=== PATIENT | female | born 1940 | race Caucasian/White ===

== ENCOUNTER 2018-01-17 22:02 | Inpatient (IN) | payer MEDICARE, BC ==
[~2018-01-17] VITALS: Ht 157.5 cm; Wt 61.2 kg
[~2018-01-17 22:02] MED LIST: ALBUTEROL2.5 MG/31 INH; AMLODIPINE BESYL5 MG PO; DUONEB 2.5-0.5 M3 ML INH; LEVAQUIN 500 M500 M2 PO; LEVOTHYROXINE 0.1 MG PO; PREDNISONE 10 M10 MG PO
[2018-01-17 22:08] VITALS: BP 192/91
[2018-01-17] MEDS ORDERED: SPIRIVA RESPIMAT4 G1 (22:15)
[2018-01-17] MEDS ORDERED: DULERA 100 MCG/13 GM INH (22:16)
[2018-01-17 23:05] LABS: HEMATOCRIT 42.8 % (37.0-47.0); MCH 27.9 pg (26.0-34.0); MCHC 32.7 g/dL (28.0-37.0); MCV 85.5 fL (80.0-100.0); MPV 7.2 fl. (7.2-11.1); NUCLEATED RBCS 0 /100WBC; PLATELET COUNT* 373 thou/uL (150-400); RBC 5.01 mil/uL (4.20-5.00); RDW-CV 13.9 % (10.5-14.5); WBC 6.8 thou/uL (4.0-11.0)
[2018-01-17 23:13] LABS: ANION GAP 5 mmol/L (7-16); BUN 7 mg/dL (7-18); CALCIUM 8.6 mg/dL (8.5-10.1); CHLORIDE 100 mmol/L (98-107); CO2 35 mmol/L (21-32); CREATININE 0.7 mg/dL (0.6-1.3); GLUCOSE 131 mg/dL (70-99); POTASSIUM 3.8 mmol/L (3.5-5.1); SODIUM 140 mmol/L (136-145)
[2018-01-17 23:24] LABS: ALKALINE PHOSPHATASE 83 U/L (46-116); NT-PRO BRAIN NAT PEPTIDE 52 pg/mL (<300); SGOT 17 U/L (15-37); SGPT 19 U/L (30-65); TOTAL BILIRUBIN 0.2 mg/dL (<0.1-1.0); TOTAL PROTEIN 7.9 g/dL (6.4-8.2); TROPONIN-I LEVEL <0.06 ng/mL (<0.06)
[2018-01-17 23:42] LABS: INFLUENZA A ANTIGEN None Detected (None Detect); INFLUENZA B ANTIGEN None Detected (None Detect)
[2018-01-17 23:59] LABS: ABSOLUTE BASOPHILS 0.1 thou/uL (0.0-0.2); ABSOLUTE EOSINOPHILS 0.1 thou/uL (0.0-0.7); ABSOLUTE LYMPHOCYTES 0.3 thou/uL (0.8-5.3); ABSOLUTE MONOCYTES 0.4 thou/uL (0.0-1.2); ABSOLUTE NEUTROPHILS 5.8 thou/uL (1.6-8.1); ANISOCYTOSIS Occasional; PLATELET ESTIMATE ADEQUATE
[2018-01-18 02:10] VITALS: BP 139/70
[2018-01-18 02:26] VITALS: BP 140/60
[2018-01-18 04:00] VITALS: BP 129/57
[2018-01-18 06:02] LABS: HEMATOCRIT 39.2 % (37.0-47.0); HEMOGLOBIN 12.6 gm/dL (12.0-15.0); MCH 27.9 pg (26.0-34.0); MCHC 32.2 g/dL (28.0-37.0); MCV 86.7 fL (80.0-100.0); MPV 7.3 fl. (7.2-11.1); RBC 4.52 mil/uL (4.20-5.00); RDW-CV 13.7 % (10.5-14.5); WBC 7.2 thou/uL (4.0-11.0)
[2018-01-18 06:10] LABS: CALCIUM 8.2 mg/dL (8.5-10.1); CREATININE 0.6 mg/dL (0.6-1.3); POTASSIUM 3.9 mmol/L (3.5-5.1)
[2018-01-18 09:13] LABS: BE 3.5 mmol/L (-2 to +3); HCO3 31.2 mmol/L (22.0-26.0); pH 7.322 (7.340-7.450)
[2018-01-18 09:14] LABS: PCO2 61.7 mmHg (35.0-45.0); PO2 191.1 mmHg (75.0-100.0)
--- NOTE | 2018-01-18 12:08 | EKG ---
[place] [address] ELECTROCARDIOGRAM REPORT Name: REID BISHOP Room: [address] ADM IN M.R.#: [id number] Admission: 01/18/18 Attend Phys: Jonatan Rinaldi Discharge: Date of : 44 Report #: [id number] THIS REPORT FOR: //name// [facility] ED Test Date: 2018-01-17 Test Time: 23:18:26 Pat Name: REID BISHOP Department: Room: [facility] Gender: F Breast Worker: MAU : 1940 Requested By: Lizette Lozano Order Number: [id number] MD: Darin Fung Measurements Intervals [place] Rate: 105 P: 64 W[place]: 183 QRS: 68 QRSD: 102 T: 90 QT: 367 QTc: 486 Interpretive Statements Sinus tachycardia Low voltage, extremity and precordial leads Artifact in lead(s) I,II,III,aVR,aVL,V1,V2,V3,V4,V5,V6 and baseline wander in lead(s) II,III,aVR,aVL,aVF,V1,V2,V3,V4,V5,V6 Compared to ECG 07/08/2016 02:10:36 rate slowed Electronically Signed On 01-18-2018 12:08:37 CDT by Darin Fung [email or web address] <ELECTRONICALLY SIGNED> By: Darin Fung MD, [facility] 01/18/18 1208 17 Darin Fung MD, [facility] /EPI
[2018-01-18 14:59] VITALS: BP 145/64
[2018-01-18 19:12] LABS: GLYCOHEMOGLOBIN (HGB A1C) 5.8 % (4.8-5.6)
[2018-01-18 20:00] VITALS: BP 141/73
[2018-01-18 23:39] VITALS: BP 149/67
[2018-01-19] VITALS (7 sets, daily range): BP systolic 127–147; BP diastolic 56–77
[2018-01-19 04:05] LABS: HEMATOCRIT 38.5 % (37.0-47.0); HEMOGLOBIN 12.6 gm/dL (12.0-15.0); MCH 28.3 pg (26.0-34.0); MCHC 32.7 g/dL (28.0-37.0); MCV 86.6 fL (80.0-100.0); MPV 7.6 fl. (7.2-11.1); RBC 4.44 mil/uL (4.20-5.00); RDW-CV 13.9 % (10.5-14.5)
[2018-01-19 04:20] LABS: ALBUMIN 3.4 g/dL (3.4-5.0); CALCIUM 8.1 mg/dL (8.5-10.1); CREATININE 0.6 mg/dL (0.6-1.3); MAGNESIUM 1.9 mg/dL (1.8-2.4); POTASSIUM 3.8 mmol/L (3.5-5.1); TOTAL BILIRUBIN 0.3 mg/dL (<0.1-1.0); TOTAL PROTEIN 6.5 g/dL (6.4-8.2)
[2018-01-19 04:51] LABS: BE 8.8 mmol/L (-2 to +3); HCO3 39.1 mmol/L (22.0-26.0); PO2 92.3 mmHg (75.0-100.0)
[2018-01-19 04:56] LABS: PCO2 86.6 mmHg (35.0-45.0); pH 7.273 (7.340-7.450)
[2018-01-19 08:38] LABS: BE 8.2 mmol/L (-2 to +3); HCO3 38.2 mmol/L (22.0-26.0); PO2 82.2 mmHg (75.0-100.0)
[2018-01-19 08:42] LABS: PCO2 83.8 mmHg (35.0-45.0); pH 7.277 (7.340-7.450)
[2018-01-20] VITALS (11 sets, daily range): BP systolic 133–161; BP diastolic 59–86
[2018-01-20 03:50] LABS: ABSOLUTE LYMPHOCYTES 0.6 thou/uL (0.8-5.3); ABSOLUTE MONOCYTES 0.6 thou/uL (0.0-1.2); ABSOLUTE NEUTROPHILS 8.8 thou/uL (1.6-8.1); HEMATOCRIT 38.8 % (37.0-47.0); HEMOGLOBIN 12.5 gm/dL (12.0-15.0); LYMPHOCYTES 5.7 %; MCH 28.2 pg (26.0-34.0); MCHC 32.1 g/dL (28.0-37.0); MCV 87.7 fL (80.0-100.0); MONOCYTES 6.2 %; MPV 7.5 fl. (7.2-11.1); NUCLEATED RBCS 0 /100WBC; PLATELET COUNT* 329 thou/uL (150-400); POLYS 88.1 %; RBC 4.42 mil/uL (4.20-5.00); RDW-CV 13.9 % (10.5-14.5)
[2018-01-20 06:00] LABS: BE 10.7 mmol/L (-2 to +3); PO2 73.5 mmHg (75.0-100.0); pH 7.308 (7.340-7.450)
[2018-01-20 06:01] LABS: HCO3 40.3 mmol/L (22.0-26.0); PCO2 82.3 mmHg (35.0-45.0)
[2018-01-20 08:36] LABS: ANION GAP < 0 mmol/L (7-16); BUN 28 mg/dL (7-18); CALCIUM 8.4 mg/dL (8.5-10.1); CHLORIDE 100 mmol/L (98-107); CO2 42 mmol/L (21-32); CREATININE 0.7 mg/dL (0.6-1.3); GLUCOSE 130 mg/dL (70-99); POTASSIUM 4.5 mmol/L (3.5-5.1); SODIUM 139 mmol/L (136-145)
[2018-01-21] VITALS (17 sets, daily range): BP systolic 134–186; BP diastolic 58–99
[2018-01-21 04:45] LABS: ANION GAP < 0 mmol/L (7-16); BUN 24 mg/dL (7-18); CALCIUM 8.4 mg/dL (8.5-10.1); CHLORIDE 99 mmol/L (98-107); CO2 44 mmol/L (21-32); CREATININE 0.7 mg/dL (0.6-1.3); GLUCOSE 164 mg/dL (70-99); POTASSIUM 4.1 mmol/L (3.5-5.1); SODIUM 140 mmol/L (136-145)
[2018-01-21 08:43] LABS: BE 13.6 mmol/L (-2 to +3); HCO3 42.3 mmol/L (22.0-26.0); PO2 82.3 mmHg (75.0-100.0); pH 7.369 (7.340-7.450)
[2018-01-22] VITALS (10 sets, daily range): BP systolic 138–171; BP diastolic 68–86
[2018-01-22 04:33] LABS: CALCIUM 8.5 mg/dL (8.5-10.1); CREATININE 0.6 mg/dL (0.6-1.3); POTASSIUM 3.4 mmol/L (3.5-5.1)
--- NOTE | 2018-01-22 12:30 | CON ---
[address] [address] CONSULTATION Name: REID BISHOP Room: [address] ADM IN M.R.#: [id number] Admission: 01/18/18 Attend Phys: Jonatan Rinaldi Discharge: Date of : 44 Report #: [id number] THIS REPORT FOR: //name// CC: Ivan Olmstead REASON FOR CONSULTATION: COPD exacerbation, acute respiratory failure. HISTORY OF PRESENT ILLNESS: This is a 77-year-old female patient with history of COPD/asthma, follows the course of the office. She told me that she is on nocturnal oxygen, but she has no CPAP or BiPAP. At the same time, she told me she is on Spiriva, Dulera, and albuterol at home. She had been feeling sick for the last 3 weeks with slowly progressive shortness of breath associated with wheezes and cough. The cough is mostly dry, not producing much of sputum. She was initially in distress and she had to be placed on BiPAP and she was transferred to the ICU. When I saw her, she told me that she is feeling better with the BiPAP and it seems that it is helping her. She is fully awake and answering questions. She denies any lower extremity edema. She denied any calf pain. She denies any chest pain. She denies any fever or chills. SOCIAL HISTORY: She has a prior history of smoking, quit 15 years ago. She does not drink alcohol excessively, does not abuse drugs. PAST MEDICAL HISTORY: Positive for COPD, hypothyroidism, hypertension. Also, there is a mention of asthma in her records. PAST SURGICAL HISTORY: No major chest surgery. FAMILY HISTORY: Reviewed with the patient, noncontributory. HOME MEDICATIONS: She is on albuterol, Dulera, Spiriva, amlodipine, levothyroxine. REVIEW OF SYSTEMS: A 12-point review of systems reviewed with the patient, negative other than as mentioned above. PHYSICAL EXAMINATION: VITAL SIGNS: She was on BiPAP 50% with O2 saturation more than 90%, blood pressure 146/51, pulse rate of 85, afebrile. GENERAL: Fully awake, on BiPAP, answer questions. HEENT: Head: Normocephalic, atraumatic. Pupils reactive to light. Not pale or jaundiced. External ear looks healthy and normal. Oral cavity is not examined because she had a BiPAP mask in place. I did not take it off. NECK: Full range of movement. Nontender. CHEST: Diminished air movement bilaterally, prolonged expiratory phase with wheezes. HEART: S1, S2. No murmur, [place] [id number] CONSULTATION Name: REID BISHOP Room: [address] IN M.R.#: [id number] Admission: 01/18/18 Attend Phys: Jonatan Rinaldi Discharge: Date of : 44 Report #: [id number] ABDOMEN: Benign, soft, lax, nontender. EXTREMITIES: Lower extremity, trace edema, no calf tenderness. NEUROLOGIC: Moving 4 extremities spontaneously. No focal weakness. Cranial nerves difficult to evaluate with the BiPAP mask in place. SKIN: Normal for age and race. PSYCHIATRIC: Mood and affect appropriate. Good insight and judgment. LABORATORY DATA: Her ABGs on BiPAP 7.32/61/191. Her white blood count 6.8, hemoglobin 14, and platelets of 373. D-dimer not elevated. Her creatinine is 0.6, potassium 3.9, sodium 140. BNP was not elevated. IMAGING DATA: Her chest x-ray that was done in the ER showed some basilar density suggestive for pneumonia. IMPRESSION: 1. Acute on chronic hypoxic and hypercapnic respiratory failure. 2. Chronic obstructive pulmonary disease exacerbation. 3. Pulmonary infiltrate. 4. Pneumonia. Although her ABGs showed the CO2 is still high, but overall she is tolerating the BiPAP well and she is mentating well, able to protect her airways, we will go ahead and change her to AVAPS for tidal volume 450. Meanwhile, continue the patient on antibiotics. It was noted that the patient is currently on Xopenex and budesonide. I would continue the IV steroids, continue to wean the FiO2 down once able to come off the BiPAP and can keep her O2 saturation at a safe level without increased work of breathing. We can start feeding her with monitoring signs of aspiration. We will do a followup chest x-ray and ABG in the morning. Thank you for the consult. <ELECTRONICALLY SIGNED> By: Cony Beal MD 01/22/18 1230 0926 [id number] Beal MD /nt
[2018-01-23] VITALS: BP 137/62
[2018-01-23 04:00] VITALS: BP 173/83
[2018-01-23 08:00] VITALS: BP 147/86
[2018-01-23 08:38] LABS: BE 7.2 mmol/L (-2 to +3); HCO3 35.1 mmol/L (22.0-26.0); PO2 92.8 mmHg (75.0-100.0); pH 7.354 (7.340-7.450)
[2018-01-23 08:39] LABS: PCO2 64.5 mmHg (35.0-45.0)
[2018-01-23 13:37] VITALS: BP 94/66
[2018-01-23 14:17] LABS: CALCIUM 8.4 mg/dL (8.5-10.1); CREATININE 0.6 mg/dL (0.6-1.3); MAGNESIUM 2.5 mg/dL (1.8-2.4); POTASSIUM 3.8 mmol/L (3.5-5.1)
--- NOTE | 2018-01-23 16:33 | 2DMMODE ---
[place] [address] 2 D/M-MODE ECHOCARDIOGRAM Name: REID BISHOP Room: [address] ADM IN .Eve.#: [id number] Admission: 01/18/18 Attend Phys: Mike Olmstead Discharge: Date of : 44 Date of Service: 01/23/18 1632 Report #: [id number] THIS REPORT FOR: //name// APPROVED REPORT Study performed: 01/23/2018 15:28:11 EXAM: Comprehensive 2D, Doppler, and color-flow Echocardiogram Patient Location: In-Patient Room #: [facility] Status: routine BSA: 1.68 HR: 89 bpm BP: 94/66 mmHg Rhythm: NSR Other Information Technically limited study due to patient extremely short of breath, inability to position patient. Indications COPD Dyspnea 2D Dimensions IVSd: 9.41 (7-11mm) LVOT Diam: 20.43 (18-24mm) LVDd: 47.73 mm PWd: 9.57 (7-11mm) Ascending Ao: 31.25 (22-36mm) LVDs: 31.06 (25-40mm) Aortic Root: 31.66 mm Pulmonary Valve PV Peak Ovidio.: 1.22 m/s PV Peak Gr.: 5.98 mmHg Left Ventricle The left ventricle is normal size. There is normal LV segmental wall motion. There is normal left ventricular wall thickness. The left ventricular systolic function is normal. The left ventricular ejection fraction is within the normal range. LVEF is 60-65%. This study is not technically sufficient to allow evaluation of the LV diastolic function. Right Ventricle The right ventricle is normal size. The right ventricular [place] [address] 2 D/M-MODE ECHOCARDIOGRAM Name: REID BISHOP Room: [address] IN .R.#: [id number] Admission: 01/18/18 Attend Phys: Mike Olmstead Discharge: Date of : 44 Date of Service: 01/23/18 1632 Report #: [id number] At[facility] The left atrium size is normal. Right atrium is dilated. Aortic Valve Mild aortic valve sclerosis. No aortic regurgitation is present. There is no aortic valvular stenosis. Mitral Valve The mitral valve is normal in structure. Trace mitral regurgitation. No evidence of mitral valve stenosis. Tricuspid Valve The tricuspid valve is normal in structure. Trace tricuspid regurgitation. Unable to assess PA pressure. Pulmonic Valve The pulmonary valve is normal in structure. There is no pulmonic valvular regurgitation. Great Vessels The aortic root is normal in size. The ascending aorta is normal in size. IVC is normal in size and collapses >50% with inspiration. Pericardium There is no pericardial effusion. <Conclusion> LVEF is 60-65%. Mild aortic valve sclerosis. <ELECTRONICALLY SIGNED> By: Darin Fung MD, FACC 01/23/181631 31 31 Darin Fung MD, FACC /INF
[2018-01-23 17:11] VITALS: BP 151/73
[2018-01-23 19:40] VITALS: BP 146/70
[2018-01-24] VITALS: BP 109/53; BP 124/66
[2018-01-24 04:00] VITALS: BP 141/67
[2018-01-24 04:45] LABS: HEMATOCRIT 44.2 % (37.0-47.0); HEMOGLOBIN 14.2 gm/dL (12.0-15.0); MCH 27.9 pg (26.0-34.0); MCHC 32.2 g/dL (28.0-37.0); MCV 86.9 fL (80.0-100.0); MPV 7.5 fl. (7.2-11.1); NUCLEATED RBCS 0 /100WBC; PLATELET COUNT* 334 thou/uL (150-400); RBC 5.09 mil/uL (4.20-5.00); RDW-CV 13.6 % (10.5-14.5); WBC 8.9 thou/uL (4.0-11.0)
[2018-01-24 05:09] LABS: CALCIUM 8.3 mg/dL (8.5-10.1); POTASSIUM 4.1 mmol/L (3.5-5.1)
[2018-01-24 05:20] LABS: ALBUMIN 3.1 g/dL (3.4-5.0); CREATININE 0.5 mg/dL (0.6-1.3); MAGNESIUM 2.6 mg/dL (1.8-2.4); TOTAL BILIRUBIN 0.6 mg/dL (<0.1-1.0); TOTAL PROTEIN 6.5 g/dL (6.4-8.2)
[2018-01-24 05:45] LABS: ABSOLUTE LYMPHOCYTES 0.5 thou/uL (0.8-5.3); ABSOLUTE MONOCYTES 0.4 thou/uL (0.0-1.2); ABSOLUTE NEUTROPHILS 7.9 thou/uL (1.6-8.1); ANISOCYTOSIS 1+; PLATELET ESTIMATE ADEQUATE; POIKILOCYTOSIS 1+
[2018-01-24 07:52] VITALS: BP 153/81
[2018-01-24 12:00] VITALS: BP 119/59
[2018-01-24 16:00] VITALS: BP 147/77
[2018-01-25] VITALS: BP 132/66
[2018-01-25 04:00] VITALS: BP 138/64
[2018-01-25 08:00] VITALS: BP 142/62
[2018-01-25 12:00] VITALS: BP 125/70
[2018-01-26 00:24] VITALS: BP 138/49
[2018-01-26 04:12] VITALS: BP 136/61
[2018-01-26 07:50] VITALS: BP 143/68
[2018-01-26 12:00] VITALS: BP 174/67
[2018-01-26 16:00] VITALS: BP 134/62
[2018-01-27] VITALS: BP 130/55
[2018-01-27 04:54] LABS: HEMATOCRIT 42.2 % (37.0-47.0); HEMOGLOBIN 13.3 gm/dL (12.0-15.0); MCH 27.5 pg (26.0-34.0); MCHC 31.4 g/dL (28.0-37.0); MCV 87.4 fL (80.0-100.0); MPV 7.9 fl. (7.2-11.1); NUCLEATED RBCS 0 /100WBC; PLATELET COUNT* 361 thou/uL (150-400); RBC 4.83 mil/uL (4.20-5.00); RDW-CV 13.8 % (10.5-14.5); WBC 12.1 thou/uL (4.0-11.0)
[2018-01-27 05:01] VITALS: BP 125/57
[2018-01-27 05:12] LABS: CALCIUM 8.4 mg/dL (8.5-10.1); CREATININE 0.6 mg/dL (0.6-1.3); MAGNESIUM 2.2 mg/dL (1.8-2.4); PHOSPHORUS* 4.9 mg/dL (2.5-4.9); POTASSIUM 4.2 mmol/L (3.5-5.1)
[2018-01-27 08:22] LABS: ABSOLUTE LYMPHOCYTES 0.8 thou/uL (0.8-5.3); ABSOLUTE MONOCYTES 0.7 thou/uL (0.0-1.2); ABSOLUTE NEUTROPHILS 10.5 thou/uL (1.6-8.1); MYELOCYTES 1 %; PLATELET ESTIMATE ADEQUATE
[2018-01-27 12:00] VITALS: BP 144/59
[2018-01-27 16:49] VITALS: BP 156/72
[2018-01-27 17:53] LABS: BE 10.3 mmol/L (-2 to +3); HCO3 37.6 mmol/L (22.0-26.0); PO2 76.5 mmHg (75.0-100.0); pH 7.405 (7.340-7.450)
[2018-01-27 17:55] LABS: PCO2 61.4 mmHg (35.0-45.0)
[2018-01-27 20:10] VITALS: BP 137/70
[2018-01-28] VITALS: BP 142/66
[2018-01-28 04:00] VITALS: BP 106/87
[2018-01-28 05:55] LABS: HEMATOCRIT 43.5 % (37.0-47.0); HEMOGLOBIN 14.1 gm/dL (12.0-15.0); MCHC 32.4 g/dL (28.0-37.0); MCV 86.5 fL (80.0-100.0); MPV 8.3 fl. (7.2-11.1); RBC 5.03 mil/uL (4.20-5.00); RDW-CV 13.6 % (10.5-14.5); WBC 14.7 thou/uL (4.0-11.0)
[2018-01-28 06:04] LABS: ALBUMIN 3.4 g/dL (3.4-5.0); CALCIUM 8.4 mg/dL (8.5-10.1); CREATININE 0.4 mg/dL (0.6-1.3); MAGNESIUM 2.3 mg/dL (1.8-2.4); POTASSIUM 4.1 mmol/L (3.5-5.1); TOTAL BILIRUBIN 0.6 mg/dL (<0.1-1.0); TOTAL PROTEIN 6.2 g/dL (6.4-8.2)
[2018-01-28 12:42] VITALS: BP 136/60
[2018-01-28 16:22] VITALS: BP 143/57
[2018-01-28 20:15] VITALS: BP 167/82
[2018-01-29] VITALS: BP 143/71
[2018-01-29 04:00] VITALS: BP 136/68
[2018-01-29 05:44] LABS: CALCIUM 8.1 mg/dL (8.5-10.1); CREATININE 0.5 mg/dL (0.6-1.3); PHOSPHORUS* 3.8 mg/dL (2.5-4.9); POTASSIUM 3.9 mmol/L (3.5-5.1)
[2018-01-29 10:51] VITALS: BP 136/68
[2018-01-29 10:52] VITALS: BP 136/68
[2018-01-29 11:58] VITALS: BP 154/70
[2018-01-29] MEDS ORDERED: PREDNISONE10 MG PO (13:06)
[2018-01-29 13:07] VITALS: BP 136/68
== END 2018-01-29 13:40 | disposition home health service (06) | DRG 177 ==
LOC: M.ERS 22:02 → M.TBA-ER 01-18 00:20 → M.ICU 01-18 00:20 → M.2W 01-22 15:04
PROVIDERS: Emergency Medicine; Family Medicine; Internal Medicine; Internal Medicine Critical Care Medicine; ADMIT Internal Medicine
PROC: 5A09357 Assistance with Respiratory Ventilation, Less than 24 Consecutive Hours, Continuous Positive Airway Pressure (ICD-10-PCS; principal; 2018-01-18)
PROC: 5A09357 Assistance with Respiratory Ventilation, Less than 24 Consecutive Hours, Continuous Positive Airway Pressure (ICD-10-PCS; 2018-01-19)
PROC: 5A09357 Assistance with Respiratory Ventilation, Less than 24 Consecutive Hours, Continuous Positive Airway Pressure (ICD-10-PCS; 2018-01-20)
PROC: 5A09357 Assistance with Respiratory Ventilation, Less than 24 Consecutive Hours, Continuous Positive Airway Pressure (ICD-10-PCS; 2018-01-21)
PROC: 5A09357 Assistance with Respiratory Ventilation, Less than 24 Consecutive Hours, Continuous Positive Airway Pressure (ICD-10-PCS; 2018-01-22)
PROC: 5A09357 Assistance with Respiratory Ventilation, Less than 24 Consecutive Hours, Continuous Positive Airway Pressure (ICD-10-PCS; 2018-01-23)
PROC: 5A09357 Assistance with Respiratory Ventilation, Less than 24 Consecutive Hours, Continuous Positive Airway Pressure (ICD-10-PCS; 2018-01-24)
PROC: 5A09357 Assistance with Respiratory Ventilation, Less than 24 Consecutive Hours, Continuous Positive Airway Pressure (ICD-10-PCS; 2018-01-25)
PROC: 5A09357 Assistance with Respiratory Ventilation, Less than 24 Consecutive Hours, Continuous Positive Airway Pressure (ICD-10-PCS; 2018-01-26)
PROC: 5A09357 Assistance with Respiratory Ventilation, Less than 24 Consecutive Hours, Continuous Positive Airway Pressure (ICD-10-PCS; 2018-01-27)
DX: J15.6 Pneumonia due to other Gram-negative bacteria (principal); J96.21 Acute and chronic respiratory failure with hypoxia; J96.22 Acute and chronic respiratory failure with hypercapnia; J44.1 Chronic obstructive pulmonary disease with (acute) exacerbation; J44.0 Chronic obstructive pulmonary disease with (acute) lower respiratory infection; J15.9 Unspecified bacterial pneumonia; F41.9 Anxiety disorder, unspecified; R26.9 Unspecified abnormalities of gait and mobility; E03.9 Hypothyroidism, unspecified; I10 Essential (primary) hypertension; Z99.81 Dependence on supplemental oxygen; Z91.040 Latex allergy status; Z87.891 Personal history of nicotine dependence; Z88.8 Allergy status to other drugs, medicaments and biological substances